=== PATIENT | female | born 1995 | race Asian ===

== ENCOUNTER 2017-05-01 17:41 | Emergency (ER) | payer OTHER ==
[2017-05-01 17:51] VITALS: BP 119/77; PULSE 92; RESP 17; TEMP 97.9; O2SAT 97
--- NOTE | 2017-05-01 19:45 | EDPHY ---
H & P Time Seen by Provider: 05/01/17 19:16 HPI/ROS: CHIEF COMPLAINT: Dog bite right hand HISTORY OF PRESENT ILLNESS: 21-year-old female presents to the emergency department with dog bite to the right hand. The patient was playing with her friends puppy and was subsequently bit on the right palm. The incident happened 2 days ago. She is right-hand dominant. She believes her tetanus shot is current. She believes the puppy is current on vaccinations. ROS: Denies numbness or tingling in her fingers, retained foreign body or other injuries. Past Medical/Surgical History: Negative Social History: [employer] student from [employer] Smoking Status: Current every day smoker Physical Exam: On examination the patient has 3 puncture wounds noted to the palmar aspect of the right hand overlying thenar eminence. It is mildly tender to palpate. There is no redness. No tenderness. Full range of motion of her fingers. Normal sensation to light touch with normal 2 point discrimination. Constitutional: Initial Vital Signs Temperature (C) 36.6 C 05/01/17 17:48 Heart Rate 92 05/01/17 17:48 Respiratory Rate 17 05/01/17 17:48 Blood Pressure 119/77 05/01/17 17:48 O2 Sat (%) 97 05/01/17 17:48 O2 Delivery Mode Room Air Allergies/Adverse Reactions: No Known Allergies Allergy (Unverified 05/01/17 17:48) Home Medications: Medication Instructions Recorded Amoxicillin/Clavulanate Pot 875 mg PO BID #10 tab 05/01/17 [Augmentin 875 mg tab] MDM/Departure - MDM ED Course/Re-evaluation: I do not think IV antibiotics are indicated. Patient will be started on oral antibiotics. Wound care precautions were given to her. No sutures required. - Depart Disposition: Home, Routine, Self-Care Clinical Impression: Dog bite of right hand Qualifiers: Encounter type: initial encounter Qualified Code(s): S61.451A - Open bite of right hand, initial encounter; W54.0XXA - Bitten by dog, initial encounter Condition: Good Instructions: Animal Bite (ED) Additional Instructions: Augmentin as directed for 5 days to prevent infection. Ibuprofen 600 mg every 8 hours as needed for pain. Return to the emergency department if you develop increasing pain, red streaking up your arm, fever, or if you feel worse in any way. 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
== END 2017-05-01 19:57 | disposition home or self-care (01) ==
DX: S61.451A Open bite of right hand, initial encounter (principal); F17.200 Nicotine dependence, unspecified, uncomplicated; W54.0XXA Bitten by dog, initial encounter; Y99.8 Other external cause status